=== PATIENT | male | born 1960 | race African-American/Black ===

== ENCOUNTER 2016-10-08 16:04 | Inpatient (IN) | payer OTHER ==
[~2016-10-08] VITALS: Ht 182.9 cm; Wt 92.4 kg
[~2016-10-08 16:04] MED LIST: LIDOCAINE 2% SYR 5 ML IV ONE; PROPOFOL 50ML PER ML IV ONE
[2016-10-08] MEDS ORDERED: ASPIRIN 81 MG CHEW TAB ONE (16:41)
[2016-10-08] MEDS ORDERED: SODIUM CHLORIDE 0.9% 1,000 ML ONE (18:20)
[2016-10-08] MEDS ORDERED: ONDANSETRON 4 MG VIAL ONE (18:20)
[2016-10-08] MEDS ORDERED: ALU/MAG/SIM 30 ML UDC ONE (18:20)
[2016-10-08] MEDS ORDERED: ONDANSETRON 4 MG VIAL IV PUSH PRN (20:25)
[2016-10-08] MEDS ORDERED: ACETAMINOPHEN 325 MG TAB PO PRN (20:25)
[2016-10-08 22:58] VITALS: Ht 182.9 cm; Wt 92.4 kg
[2016-10-08 23:00] VITALS: BP_SYST 112; RESP 18; TEMP 98.8
[2016-10-08] MEDS: SOD CHLOR 0.9% 1000 ML IV SCH (23:49)
[2016-10-09] MEDS: oxyCODONE/APAP 10/325 TABLET PO PRN ×4 (00:58→18:58)
[2016-10-09] MEDS: ALU/MAG/SIM 30 ML UDC PO PRN ×3 (01:01→18:56)
[2016-10-09 03:37] VITALS: BP_SYST 141; RESP 16; TEMP 98.8
[2016-10-09] MEDS: PANTOPRAZOLE 40 MG TAB PO SCH (03:54)
[2016-10-09] MEDS ORDERED: GLUCAGON 1 MG VIAL IM PRN (07:30)
[2016-10-09] MEDS ORDERED: DEXTROSE 50% SYRINGE 50 ML IV PRN (07:30)
[2016-10-09 07:33] VITALS: BP_SYST 121; RESP 18; TEMP 98.6
[2016-10-09] MEDS ORDERED: oxyCODONE/APAP 10/325 TABLET PO PRN (07:50)
[2016-10-09] MEDS: LEVEMIR INSULIN SUBQ SCH (08:17)
[2016-10-09] MEDS: SOD CHLOR 0.9% 1000 ML IV SCH (09:25)
[2016-10-09] MEDS: GLIMEPIRIDE 2 MG TAB PO SCH (10:48)
[2016-10-09] MEDS: BUPROPION XL 150 MG TAB PO SCH (10:48)
[2016-10-09] MEDS: DULoxetine 20 MG CAP PO SCH (10:48)
[2016-10-09 11:36] VITALS: BP_SYST 135; RESP 16; TEMP 98.5
[2016-10-09] MEDS ORDERED: TRAZODONE 50 MG TAB PO PRN (15:30)
[2016-10-09 16:05] VITALS: BP_SYST 129; RESP 16; TEMP 98.5
[2016-10-09 20:42] VITALS: BP_SYST 129; RESP 20; TEMP 98.3
[2016-10-09] MEDS ORDERED: MISSING DOSE XX ONE (20:55)
[2016-10-09 23:55] VITALS: BP_SYST 114; RESP 16; TEMP 98.4
[2016-10-10] VITALS (8 sets, daily range): BP systolic 107–178; RESP 13–22; TEMP 97.4–98.9
[2016-10-10] MEDS: ALU/MAG/SIM 30 ML UDC PO PRN (00:29)
[2016-10-10] MEDS: oxyCODONE/APAP 10/325 TABLET PO PRN ×2 (01:26→08:37)
[2016-10-10] MEDS: PANTOPRAZOLE 40 MG TAB PO SCH (06:26)
[2016-10-10] MEDS: SOD CHLOR 0.9% 1000 ML IV SCH (06:27)
[2016-10-10] MEDS ORDERED: LIDOCAINE 1% BUFFERED 1 ML SYR INTRADERM PRN (07:45)
[2016-10-10] MEDS ORDERED: LACT RINGERS 1,000 ML IV SCH (07:45)
[2016-10-10] MEDS: BUPROPION XL 150 MG TAB PO SCH (08:36)
[2016-10-10] MEDS: DULoxetine 20 MG CAP PO SCH (08:36)
[2016-10-10] MEDS: GLIMEPIRIDE 2 MG TAB PO SCH (08:36)
[2016-10-10] MEDS: LEVEMIR INSULIN SUBQ SCH (08:38)
[2016-10-10] MEDS ORDERED: LEVEMIR INSULIN SUBQ SCH (09:00)
[2016-10-10] MEDS ORDERED: KAYEXOLATE 15 GM/60 ML BTL PO ONE (10:15)
== END 2016-10-10 11:00 | disposition home or self-care (01) | DRG 392 ==
LOC: ENRESERVTM → CANRESERV → ENRESERVDT → ER 16:04 → ENPENDDIS 20:11 → EMR 20:11 → 3NT 23:17
PROVIDERS: ADMIT Internal Medicine Nephrology; ATTEND Internal Medicine Nephrology
PROC: 0DB68ZX Excision of Stomach, Via Natural or Artificial Opening Endoscopic, Diagnostic (ICD-10-PCS; 2016-10-10)
PROC: 0DB98ZX Excision of Duodenum, Via Natural or Artificial Opening Endoscopic, Diagnostic (ICD-10-PCS; principal; 2016-10-10 13:20)
DX: K29.70 Gastritis, unspecified, without bleeding (principal); N17.9 Acute kidney failure, unspecified; E11.65 Type 2 diabetes mellitus with hyperglycemia; I10 Essential (primary) hypertension; I25.10 Atherosclerotic heart disease of native coronary artery without angina pectoris; Z95.5 Presence of coronary angioplasty implant and graft; E78.5 Hyperlipidemia, unspecified; Z79.4 Long term (current) use of insulin; Z79.84 Long term (current) use of oral hypoglycemic drugs; F32.9 Major depressive disorder, single episode, unspecified; N52.9 Male erectile dysfunction, unspecified; E86.0 Dehydration; K21.9 Gastro-esophageal reflux disease without esophagitis; F17.210 Nicotine dependence, cigarettes, uncomplicated; I25.2 Old myocardial infarction; K44.9 Diaphragmatic hernia without obstruction or gangrene; K29.80 Duodenitis without bleeding
CPT/HCPCS: 36415; 71010; 76770; 80048; 80053; 81003; 82150; 82550; 82947; 83690; 83735; 84484; 85025; 85379; 85610; 85730; 88305; 93005; 96361; 96374